=== PATIENT | male | born 1970 | race Caucasian/White ===

== ENCOUNTER → 2018-12-24 | Outpatient (CLI) | payer OTHER | END | disposition home or self-care (01) | LOC: EKG 08:40 | DX: I10 Essential (primary) hypertension (principal) ==

== ENCOUNTER 2019-01-04 10:44 | Emergency (ER) | payer OTHER ==
[~2019-01-04] VITALS: Ht 172.7 cm; Wt 99.8 kg
== END 2019-01-04 23:27 | disposition home or self-care (01) ==
LOC: ER 10:44
DX: T88.59XA Other complications of anesthesia, initial encounter (principal); R11.11 Vomiting without nausea; G44.41 Drug-induced headache, not elsewhere classified, intractable